=== PATIENT | female | born 1990 | race Two or more races ===

== ENCOUNTER → 2024-02-24 | Outpatient (CLI) | payer BC, SELFPAY ==
[2024-02-25 09:47] LABS: BVAG Candida Negative (Negative); Bacterial Vaginosis Markers Negative (Negative); Candida glabrata Positive (Negative); Candida krusei PCR Negative (Negative); Trichomonas Negative (Negative)
== END | disposition home or self-care (01) ==
LOC: SLDO 16:47
PROVIDERS: Referring Provider Specialist; Visit Provider Specialist
DX: B37.89 Other sites of candidiasis (principal); N76.0 Acute vaginitis; A59.01 Trichomonal vulvovaginitis
CPT/HCPCS: 81514

== ENCOUNTER → 2024-04-28 | Outpatient (CLI) | payer BC, SELFPAY ==
--- NOTE | 2024-04-28 13:00 | XR_ITS ---
Examination: Thyroid sonography complete TECHNIQUE: Grayscale sonographic images thyroid lobes with color flow analysis Exam date and time: April 28, 2024 1255 hours INDICATIONS: Thyroid sonogram October 09, 2023 midpole right thyroid nodule 15 mm lower pole left thyroid nodule 17 mm FINDINGS: Right thyroid 5.2 cm Midpole nodule 15 x 11 mm 3 mm lower pole cyst Left thyroid 4.9 cm Lower pole nodule 17 x 17 mm IMPRESSION: Stable bilateral thyroid nodules
[2024-04-28 13:56] LABS: Free T3 3.4 pg/mL (2.3-4.2); Free T4 (Free Thyroxine) 1.19 ng/dL (0.89-1.76); Thyroid Stimulating Hormone 0.69 uIU/mL (0.55-4.78)
== END | disposition home or self-care (01) ==
LOC: COPL 12:37
PROVIDERS: PCP Nurse Practitioner Family; Referring Provider Nurse Practitioner Family; Visit Provider Nurse Practitioner Family
DX: E04.9 Nontoxic goiter, unspecified (principal); E04.1 Nontoxic single thyroid nodule
CPT/HCPCS: 36415; 76536; 84439; 84443; 84481

== ENCOUNTER → 2024-08-12 | Outpatient (CLI) | payer BC, SELFPAY ==
[2024-08-12 09:20] LABS: Parathyroid Hormone Intact 126.7 pg/ml (18.5-88.0)
[2024-08-12 09:22] LABS: Vitamin D 25 Hydroxy Total 25.0 ng/mL (7.3-40.2)
[2024-08-12 09:31] LABS: Alanine Aminotransferase 11 U/L (10-49); Albumin, Serum 4.7 gm/dL (3.5-5.0); Albumin/Globulin Ratio 1.6 (1.2-2.2); Alkaline Phosphatase 79 U/L (46-116); Anion Gap 7 (7-16); Aspartate Amino Transferase 15 U/L (0-34); BUN/Creatinine Ratio 13 Ratio (12-20); Bilirubin,Total 0.6 mg/dL (0.3-1.2); Blood Urea Nitrogen 10 mg/dL (9-23); Calcium 10.4 mg/dL (8.3-10.6); Calcium (Corrected) 10.4 mg/dL (8.5-10.1); Carbon Dioxide 25.3 mMol/L (20.0-31.0); Chloride 108 mMol/L (98-107); Creatinine (Component) 0.8 mg/dL (0.6-1.3); Globulin 2.9 gm/dL (2.3-3.5); Glucose 101 mg/dL (74-106); Osmolality,Calculated 278 (275-295); Phosphorous 2.9 mg/dL (2.4-5.1); Potassium 3.8 mMol/L (3.4-5.1); Sodium 140 mMol/L (136-145); Total Protein 7.6 gm/dL (5.7-8.2); eGFR > 60 See Note
[2024-08-15 15:36] LABS: Albumin 4.5 g/dL (3.8-4.8); Alpha-1-Globulin 0.3 g/dL (0.2-0.3); Alpha-2-Globulin 0.7 g/dL (0.5-0.9); Beta-1-Globulin 0.5 g/dL (0.4-0.6); Beta-2-globulin 0.5 g/dL (0.2-0.5); Gamma Globulin 1.1 g/dL (0.8-1.7)
[2024-08-16 07:01] LABS: Protein, total, serum 7.5 g/dL (6.1-8.1); Vitamin D,1,25 (OH)2,Total 71 pg/mL (18-72); Vitamin D2, 1,25 (OH)2 <8 pg/mL; Vitamin D3, 1,25 (OH)2 71 pg/mL
== END | disposition home or self-care (01) ==
LOC: COPL 07:57
PROVIDERS: PCP Nurse Practitioner Family; Referring Provider Nurse Practitioner Family; Visit Provider Nurse Practitioner Family
DX: E04.9 Nontoxic goiter, unspecified (principal); E83.52 Hypercalcemia; E04.1 Nontoxic single thyroid nodule
CPT/HCPCS: 36415; 80053; 82306; 82652; 83970; 84100; 84155; 84165

== ENCOUNTER → 2024-08-16 | Outpatient (CLI) | payer BC, SELFPAY ==
[2024-08-16 10:02] LABS: Misc Send Out* See Sep Rpt
[2024-08-16 10:04] LABS: Misc Send Out* See Sep Rpt
== END | disposition home or self-care (01) ==
LOC: SLDO 08:54
PROVIDERS: Referring Provider Nurse Practitioner Family; Visit Provider Nurse Practitioner Family
DX: E04.9 Nontoxic goiter, unspecified (principal); E83.52 Hypercalcemia; E04.1 Nontoxic single thyroid nodule
CPT/HCPCS: 82340; 82570; 86335

== ENCOUNTER 2024-12-27 07:59 | Outpatient (RCR) | payer BC, SELFPAY ==
--- NOTE | 2024-12-27 09:00 | XR_ITS ---
EXAMINATION: Nuclear medicine parathyroid scan Date and time: December 27, 2024, 1636 hours INDICATIONS: Hypercalcemia, diagnosis nontoxic goiter TECHNIQUE AND FINDINGS: Intravenous administration 24.6 mCi technetium 99 M sestamibi Anterior pinhole chest images obtained to 4 hours Increased isotope accumulation over the lower portion of the right thyroid IMPRESSION:: Positive for 12 mm right parathyroid adenoma
== END 2025-01-01 23:59 | disposition home or self-care (01) ==
LOC: SNUC 07:59
PROVIDERS: PCP Nurse Practitioner Family; Referring Provider Nurse Practitioner Family; Visit Provider Nurse Practitioner Family
DX: D35.1 Benign neoplasm of parathyroid gland (principal); E21.5 Disorder of parathyroid gland, unspecified
CPT/HCPCS: 78070; A9500